=== PATIENT | female | born 1990 | race Caucasian/White ===

== ENCOUNTER → 2016-09-24 | Outpatient (CLI) | payer OTHER, BC ==
[~2016-09-24] MED LIST: BCPILLS PO; LEVO75TA5 PO; VNTHFA/IN INH
== END | disposition home or self-care (01) ==
LOC: C.RDSM 09:53
PROVIDERS: ATTEND Family Medicine Sports Medicine
DX: M25.561 Pain in right knee (principal)

== ENCOUNTER → 2016-10-07 | Outpatient (CLI) | payer OTHER, BC ==
--- NOTE | 2016-10-07 11:01 | DIAGNOSTIC IMAGING REPORT ---
LOWER EXT JOINT WITHOUT CLINICAL HISTORY: 25 years-old Female presenting with KNEE MCL Sprain, effusion OF RIGHT KNEE. TECHNIQUE: Multisequence, multiplanar MR imaging of the right knee was performed without the use of intravenous contrast. IV contrast: None. COMPARISON: Plain radiographs of the right knee from 09/24/2016. FINDINGS: Bony edema noted along the posterior aspect of the tibial plateau, greater along the lateral aspect, and the lateral aspect of the lateral femoral condyle. Cartilage remains intact in all 3 compartments. Horizontally oriented intrasubstance high signal within the junction of the posterior horn and body of the medial meniscus, which does not convincingly approach an articular surface. Lateral meniscus intact. At least partial tear of the anterior cruciate ligament with disruption of fibers at the femoral origin and redundancy of distal fibers at the tibial insertion. Few fibers may be intact. Posterior cruciate ligament intact. High signal intensity noted both deep and superficial to the medial collateral ligament, which is not thickened or disrupted, consistent with grade 1 sprain. Lateral collateral ligament complex including the biceps femoris tendon, fibular collateral ligament, popliteal tendon, and iliotibial band are intact. Quadriceps and patellar tendons intact. Prepatellar edema noted. Small joint effusion. No popliteal cyst. Normal muscle bulk. No muscular edema. IMPRESSION: 1. Posterior tibial plateau and lateral femoral condyle bony contusion associated with at least partial anterior cruciate ligament tear. 2. Abnormal intrasubstance signal within the posterior horn body junction of the medial meniscus may represent degenerative change versus small meniscal tear. 3. Grade 1 sprain of the medial collateral ligament. 4. Small joint effusion. Electronically signed by: Tim Duarte M.D. 10/07/2016 10:59 AM Dictated Date/Time: 10/07/2016 10:43 AM
== END | disposition home or self-care (01) ==
LOC: C.MRIBC 08:51
PROVIDERS: ATTEND Family Medicine Sports Medicine
DX: M25.561 Pain in right knee (principal); S83.411A Sprain of medial collateral ligament of right knee, initial encounter; X58.XXXA Exposure to other specified factors, initial encounter

== ENCOUNTER → 2016-10-22 | Outpatient (CLI) | payer OTHER, BC ==
[2016-10-22 12:35] LABS: HEMATOCRIT 43.5 % (37-47); MEAN CELL VOLUME 87.2 fL (80-100); MEAN CORPUSCULAR HEMOGLOBIN 29.1 pg (25-34); MEAN CORPUSCULAR HGB CONC 33.3 g/dl (32-36); MEAN PLATELET VOLUME 10.2 fL (7.4-10.4); PLATELET COUNT 360 K/uL (130-400); RED BLOOD COUNT 4.99 M/uL (4.2-5.4); WHITE BLOOD COUNT 8.52 K/uL (4.8-10.8)
[2016-10-22 12:41] LABS: PARTIAL THROMBOPLASTIN RATIO 1.2; PROTHROMBIN TIME (PATIENT) 10.3 SECONDS (9.0-12.0)
== END | disposition home or self-care (01) ==
LOC: C.LAB1850 11:25
PROVIDERS: ATTEND Physician Assistant
DX: S83.511A Sprain of anterior cruciate ligament of right knee, initial encounter (principal); Z01.818 Encounter for other preprocedural examination; X58.XXXA Exposure to other specified factors, initial encounter

== ENCOUNTER → 2016-10-30 | Day surgery (SDC) | payer OTHER, BC ==
[2016-10-22 12:52] VITALS: BMI 44.0
[2016-10-24 11:53] VITALS: BMI 45.0
--- NOTE | 2016-10-24 12:03 | PAT Medication Instructions ---
Service Date Oct 24, 2016. Current Home Medication List Albuterol Hfa (Ventolin Hfa), 2-4 PUFFS INH Q6H PRN for Shortness of Breath Control Pills ( Control Pills), 1 TAB PO DAILY Levothyroxine Sodium (Levothyroxine Sodium), 1 TAB PO QAM Medication Instructions For Your Scheduled Surgery - Check with surgeon for instructions: Control Pills ( Control Pills), 1 TAB PO DAILY - Take the following medications the morning of surgery with a sip of water: Levothyroxine Sodium (Levothyroxine Sodium), 1 TAB PO QAM Albuterol Hfa (Ventolin Hfa), 2-4 PUFFS INH Q6H PRN for Shortness of Breath (if needed) - Take the following medications as scheduled the night before surgery: Albuterol Hfa (Ventolin Hfa), 2-4 PUFFS INH Q6H PRN for Shortness of Breath ( if needed) If you have any questions please call us at [phone] or [phone] or [phone]
[2016-10-24 13:23] LABS: BUN/CREATININE RATIO 10.8 (10-20); CALCIUM 9.6 mg/dl (8.5-10.1); CREATININE 0.79 mg/dl (0.60-1.20); POTASSIUM 4.1 mmol/L (3.5-5.1)
[2016-10-28 10:28] VITALS: BMI 45.0
[~2016-10-30] VITALS: Ht 165.1 cm; Wt 123.6 kg
[~2016-10-30] MED LIST changes: +ATROPINE SULFATE 0.1 MG/ML 5ML SYR IV PRN; +BUPIVACAINE 0.25% 30 ML VIAL ONE; +BUPIVACAINE 0.5 % 5 MG/1 ML MPF 30ML VIAL ONE; +BUPIVACAINE/EPINEPHRINE 0.5% MPF 1:200,000 10 ML VIAL ONE; +CLINDAMYCIN 600 MG/54 ML D5W IV ONE; +CLINDAMYCIN PHOS 150 MG/ML 2 ML VIAL IV SCH; +DEXAMETHASONE SOD INJ 4 MG/ML VIAL ONE; +EpHEDrine SULFATE INJ 50 MG/ML AMP IV PRN; +EpINEphrine HCL INJ 1 MG/ML 5ML SYRINGE ONE; +FENTANYL CITRATE INJ 50 MCG/1 ML 2 ML VIAL ONE; +FLUMAZENIL 0.1 MG/1 ML 10 ML VIAL IV PRN; +GLYCOPYRROLATE INJ 0.2 MG/ML VIAL ONE; +HYDROmorphone INJ 1 MG/ML SYR IV PRN; +HYDROmorphone INJ 1 MG/ML SYR ONE; +KETOROLAC TROMETHAMINE 30 MG/ML VIAL IV. PRN; +KETOROLAC TROMETHAMINE 30 MG/ML VIAL ONE; +LABETALOL HCL IV 5 MG/ML 20ML IV PRN; +LACTATED RINGER'S 1000ML 1,000 ML IV SCH; +LIDOCAINE HCL 2% 2 ML VIAL (20MG/ML) ONE; +LIDOCAINE/EPINEPHRINE 1% 20 ML VIAL ONE; +MIDAZOLAM HCL 1 MG/ML 2ML VIAL ONE; +MoRPHine SULFATE 2 MG/ML CARP IV PRN; +MoRPHine SULFATE 4 MG/ML 1 ML CARP\\VIAL IV PRN; +NALOXONE HCL 0.4 MG/1 ML VIAL/CARP IV PRN; +NEOSTIGMINE METHYLSULFATE 5 MG/5 ML SYR ONE; +ONDANSETRON INJ 2 MG/ML 2 ML VIAL IV PRN; +ONDANSETRON INJ 2 MG/ML 2 ML VIAL ONE; +OXYCODONE/ACETAMINOPHEN 5-325 TAB PO PRN; +PROMETHAZINE HCL INJ 12.5 MG in SODIUM CHLORIDE 0.9% 50ML 50 ML IV PRN; +PROPOFOL IV EMULSION 10 MG/ML 20 ML VIAL IV ONE; +ROCURONIUM BROMIDE 10 MG/ML 5 ML VIAL ONE; +SUCCINYLCHOLINE CHLORIDE 20 MG/ML 10 ML VIAL IV ONE
[2016-10-30 11:18] VITALS: BP 114/83; PULSE 100; TEMP 36.7; O2SAT 95; Ht 165.1 cm; Wt 123.6 kg
--- NOTE | 2016-10-30 12:25 | History & Physical Bridge Note ---
H&P Re-Evaluation Bridge Note: I have examined the patient, reviewed the History & Physical and in the interval since the performance of the History & Physical I have noted the following changes of clinical significance: No changes noted
--- NOTE | 2016-10-30 17:07 | Discharge Instructions ---
Discharge Instructions Date of Service Oct 30, 2016. Admission Reason for Admission: Right Knee Acl And Lateral Meniscus Tears Discharge Discharge Diagnosis / Problem: Status post Right ACL reconstruction, partial medial & lateral menscectomy Discharge Goals Goal(s): Decrease discomfort, Improve function, Increase independence Activity Recommendations Activity Limitations: per Instructions/Follow-up section Shower/Bathe: may shower/bathe in 3 days Driving or Machine Use: Not while on Narcotics and at least until after no longer wearing brace. Recommend waiting until gait returns to normal in 4-6 weeks. . Current Hospital Diet Patient's current hospital diet: Regular Diet Discharge Diet Recommended Diet: Regular Diet Procedures Procedures Performed: Partial Lateral Meniscectomy, Anterior Cruciate Ligament Reconstruction, Medial Meniscectomy Pending Studies Studies pending at discharge: no School Instructions Return To School: time frame (1-2 weeks) Medical Emergencies . Who to Call and When: Medical Emergencies: If at any time you feel your situation is an emergency, please call 911 immediately. . Non-Emergent Contact Non-Emergency issues call your: Surgeon Call Non-Emergent contact if: temperature is above 101.5, your pain is not controlled, wound has increased drainage, wound has increased redness . "Provider Documentation" section prepared by Farzad De La Torre. . VTE Core Measure Inpt VTE Proph given/why not?: Other Anticoagulation (Asprin 325 mg twice a day x 3 weeks), T.E.D. Stockings
--- NOTE | 2016-10-30 17:10 | [facility] Operative Report ---
Operative Report Operative Date Oct 30, 2016. Pre-Operative Diagnosis Anterior Cruciate Ligament Tear of Right Knee Post-Operative Diagnosis Anterior Cruciate Ligament Tear of Right Knee,Lateral Meniscus Tear and Medial Meniscus Tear Procedure(s) Performed 1) Right knee arthrscopy with Anterior Cruciate Ligament Reconstruction with Hamstring autograft augmented with allograft. 2) Partial Medial and Lateral Meniscectomies. 3) Exam under anesthesia. Surgeon Dr. Cara De La Torre Cuffing Machine Operator Surgeon(s) Dr. Rolando Vega, Vel Gary PA-C & Manny Calderon PA-C Estimated Blood Loss 20ml Findings Examination Under Anesthesia: Range of motion was 5 of hyperextension-125 of flexion. Ligamentous examination exhibited: Dinora testing with 5 mm of anterior translation and soft endpoint, and a + glide. Stable: posterior drawer , varus and valgus stress testing at zero and 30. ARTHROSCOPIC FINDINGS: There was significant synovitis of the fat pad. 1) PATELLOFEMORAL JOINT: To articular surface of the patella and trochlea were intact. 2) GUTTERS: No loose bodies. 3) MEDIAL COMPARTMENT: The articular surface of the femur and tibia were normal. There was a small less than 10 mm undersurface partial tear in the posterior aspect of the medial meniscus, less than 25% of the depth. 4) ACL/PCL: There was an empty lateral wall sign, with obvious tear of the ACL from its femoral attachment. The PCL was intact 5) LATERAL COMPARTMENT: The lateral compartment was then entered in a figure-of- four position. The femoral/tibial cartilage was normal. The lateral meniscus had a radial tear at the apex resulting in a parent beak tear anteriorly. Fluids 1800 Specimens none per surgeon Dr. Cara De La Torre Drains n/a Anesthesia GET + Adductor canal Block. Complication(s) None Disposition Recovery Room / PACU (Stable ) Indications This is a 25-year-old female who tore their right ACL during a hiking accident. I recommended that their right knee anterior cruciate ligament reconstruction be performed to allow the patient to return to cutting/pivoting activities. The patient understands the rehabilitation process as well as the risks of surgery, which include bleeding, infection, re-operation, damage to nerves and arteries, continued knee pain, or regression of arthritis, arthrofibrosis (knee stiffness) , failure of the graft, failure of the hardware, and the potential that the patient may not return to their previous level of activity, and deep vein thrombosis. The patient understands all of these instructions and explanations , all of their questions have been satisfactorily addressed and the patient has elected to proceed. Informed consent was signed. Description of Procedure IMPLANTS: 1. Femoral Fixation with ACL Tightrope RT (Arthrex). 2. Tibial Fixation with ABS Tightrope with ABS button (Arthrex). PROCEDURE: The patient was taken to the Operating Room and placed in the supine position after Adductor nerve block and general anesthetic was administered. The surgeon initials and a multidisciplinary time-out were used to identify the right leg as the correct operative limb. Prior to the incision, 600 milligrams of intravenous clindamycin was given. The right leg was then prepped and draped in a standard sterile fashion. The anterolateral, anteromedial, and superolateral portals were injected with the 50:50 mixture of 1% Lidocaine plain and 0.5% Bupivacaine with epinephrine, for a total of 10cc, in the standard fashion. An anterolateral arthroscopic portal was established with 11-blade. Next, the arthroscope was introduced into the knee. The anteromedial portal was established under direct visualization using a spinal needle followed by an 11 blade in the standard fashion. The above findings were observed during the diagnostic arthroscopy. Graft [place]/Preparation: The oblique planed incision was injected with 6 cc of the above noted 50:50 mixture. With the knee bent 40-50 degrees a #10- blade was used to make sharp dissection approximately 5 cm. Blunt dissection was used to identify the Sartorious fascia. This was incised along its superior border and T distally. The Gracilis and Semitendinosus were identified and tagged. The tendons appeared very small with the gracilis appearing larger then the semitendinosus. All adhesions were bluntly and sharply dissected off the gracilis tendon. The gracilis was sharply dissected off the bone distally and a Krackow stitch was placed with a #2 FiberWire. The tendon was delivered into the wound and the remaining adhesions were removed. A closed end graft harvester was used to then harvest the gracilis tendon in the standard fashion. The graft was placed on the back table for preparation. All excess muscle was removed. It easily fit through a 6 mm sizer. At that point it was felt that the additional tendon would not provide enough collagen to make an adequate sized graft and allograft was called for and we left the semitendinosus tendon alone. The allograft was thawed. It was trimmed and incorporated with the above autograft. The ends of the tendons were whipped stitched with 3-0 Vicryl and passed through the ABS and RT Tightropes, where the ends were then secured with a FiberLoop. 0 Vicryl was used to carolina the 20mm from either end of the tight ropes and the knot docked in the standard fashion. It was quadrupled over and found to fit an 8.5 mm sizer, for the femoral side and tibial side. The graft length was 67 mm. The graft was tensioned on the back table and 15 PSI and covered with a moist sponge until later use. After completing the diagnostic arthroscopy, the fat pad was removed to enable better visualization of all the compartments and 4 tunnel preparation and passage of the graft. The meniscal tears were debrided with accommodation of hand punches and mechanical shaver back to stable margins. The right knee was then flexed to 90 degrees and a bump was placed underneath the posterior thigh. With the knee flexed in a 90-degree position, my attention was then focused on excising the remnants of the anterior cruciate ligament with a 5.0 mm shaver and Coolcut. A small notchplasty was performed to visualize the back wall. The arthroscope was switch to the anteromedial portal and the Flipcutter aiming guide was placed at the 10 Oclock position with 7 mm from the over the top position, with 105 degrees. The lateral aspect of the femur was marked and a small 2 cm incision was made to place the aiming guide down to bone. Then the 8.5 mm Flipcutter was introduced into the knee through the lateral femoral condyle for proper femoral tunnel placement. The Flipcutter was flipped and the tunnel was reamed for a total tunnel length of 30 mm. There was 1 mm thick back wall. A Fiberstick suture was then used and shuttled in through the femoral tunnel and then out the anterolateral portal. The Tibial drill guide was then brought into the knee and set on 60 degrees. A 8.5 mm Flipcutter was then introduced from the anteromedial tibia into the intra -articular position in the center of the ACL footprint even with the anterior horn of lateral meniscus and 8 mm anterior to the PCL. The tunnel was created to a depth of 32 mm. A Tigerstick was introduced through the tibial tunnel and retrieved with the Fiberstick through the anteromedial portal. The graft was then introduced intra-articularly through the anteromedial portal. The graft was then seated in an anatomic position along the femur. Fixation was accomplished on the femoral side with an ACL Tightrope RT. The graft was then introduced into the tibial tunnel and an ABS button was placed. Next, the graft was taken into full extension. There was no impingement. The graft entered the knee approximately 1 mm at 10 degrees of flexion. The arthroscopic instruments were then removed. The graft was then cycled and fixed to the knee in 0 degrees flexion with ABS Tightrope and button on the tibial side in the standard fashion. Idnora and pivot shift were then tested and were negative. The knee had full range of motion. The wounds were then copiously irrigated. The portal sites were closed with 3- 0 Prolene. The Sartorius fascia was closed with 0 Vicryl in a running fashion. The deep adipose tissue had a single 2-0 Vicryl suture placed after copious irrigation. The subcutaneous tissue was closed with 3-0 Vicryl. The skin was closed with a running subcuticular using a 3-0 Prolene in a standard running fashion. The wound was dressed with Steri-Strips, Xeroform gauze, sterile gauze , ABDs, sterile Webril, and a foot to thigh Ward bandage. An Iceman device and T-ROM hinged knee brace were applied. The patient was then transferred to the Recovery Room in stable condition. Post-op Instructions: The patient will be weight bearing as tolerated with his brace locked in extension for the next 2 weeks. The patient may remove the operative dressing on Post-Op Day #2 and apply Band-Aids to the portal wounds and cover their anterior incision with gauze as needed. The patient may shower in 72 hours and is to wear the ED for 2 weeks on their operative limb. The patient is to use the pain medicine as needed and take the ASA for 3 weeks. The patient is to start PT post-operative day 2. The patient was also given a handout for home quad strengthening and seated self-assisted ROM exercises, which they may begin tomorrow. The patient is to follow up with me in 10-15 days. I attest to the content of the Intraoperative Record and any orders documented therein. Any exceptions are noted below.
--- NOTE | 2016-10-30 17:16 | [facility] Post Operative Brief Note ---
Immediate Operative Summary Operative Date Oct 30, 2016. Pre-Operative Diagnosis Anterior Cruciate Ligament Tear of Right Knee Post-Operative Diagnosis Anterior Cruciate Ligament Tear of Right Knee,Lateral Meniscus Tear and Medial Meniscus Tear Procedure(s) Performed 1) Right knee arthrscopy with Anterior Cruciate Ligament Reconstruction with Hamstring autograft augmented with allograft. 2) Partial Medial and Lateral Meniscectomies. 3) Exam under anesthesia. Surgeon Dr. Cara De La Torre Patient Ambassador Surgeon(s) Dr. Rolando Vega, Vel Gary PA-C & Manny Calderon PA-C Estimated Blood Loss 20ml Findings ACL tear, partial medial meniscus tear Fluids (cc crystalloids) 1800 Specimens none per surgeon Dr. Cara De La Torre Drains none Anesthesia general Complication(s) None Disposition Recovery Room / PACU
--- NOTE | 2016-10-30 18:12 | Anesthesiology Progress Note ---
Anesthesia Post Op Note Date & Time Oct 30, 2016 at 18:12 Vital Signs Pain Intensity: 5 Vital Signs Past 12 Hours Date Time Temp Pulse Resp B/P (MAP) Pulse Ox O2 Delivery O2 Flow Rate FiO2 10/30/16 18:05 100 16 141/81 94 Room Air 10/30/16 17:55 110 16 151/85 95 Room Air 10/30/16 17:45 36.2 111 16 148/87 94 Oxymask 10 10/30/16 17:35 111 16 155/87 94 Oxymask 10 10/30/16 17:27 36.0 117 16 155/83 96 Oxymask 10 10/30/16 11:18 36.7 100 18 114/83 (93) 95 Room Air Notes Mental Status: alert / awake / arousable, participated in evaluation Pt Amnestic to Procedure: Yes Nausea / Vomiting: adequately controlled Pain: adequately controlled Airway Patency, RR, SpO2: stable & adequate BP & HR: stable & adequate Hydration State: stable & adequate Anesthetic Complications: no major complications apparent
[2016-10-30 18:27] VITALS: BP 140/78; PULSE 105; TEMP 36.5; O2SAT 95
[2016-10-30 19:20] VITALS: BP 137/72; PULSE 105; TEMP 36.3; O2SAT 94
== END | disposition home or self-care (01) ==
LOC: C.ACU 10:56
PROVIDERS: ATTEND Orthopaedic Surgery Sports Medicine
DX: S83.511A Sprain of anterior cruciate ligament of right knee, initial encounter (principal); S83.241A Other tear of medial meniscus, current injury, right knee, initial encounter; S83.281A Other tear of lateral meniscus, current injury, right knee, initial encounter; W01.0XXA Fall on same level from slipping, tripping and stumbling without subsequent striking against object, initial encounter; J45.909 Unspecified asthma, uncomplicated; E03.9 Hypothyroidism, unspecified; E66.9 Obesity, unspecified; Z79.3 Long term (current) use of hormonal contraceptives

== ENCOUNTER → 2016-11-12 | Outpatient (CLI) | payer OTHER, BC ==
[~2016-11-12] MED LIST changes: -ATROPINE SULFATE 0.1 MG/ML 5ML SYR IV PRN; -BCPILLS PO; -BUPIVACAINE 0.25% 30 ML VIAL ONE; -BUPIVACAINE 0.5 % 5 MG/1 ML MPF 30ML VIAL ONE; -BUPIVACAINE/EPINEPHRINE 0.5% MPF 1:200,000 10 ML VIAL ONE; -CLINDAMYCIN 600 MG/54 ML D5W IV ONE; -CLINDAMYCIN PHOS 150 MG/ML 2 ML VIAL IV SCH; -DEXAMETHASONE SOD INJ 4 MG/ML VIAL ONE; -EpHEDrine SULFATE INJ 50 MG/ML AMP IV PRN; -EpINEphrine HCL INJ 1 MG/ML 5ML SYRINGE ONE; -FENTANYL CITRATE INJ 50 MCG/1 ML 2 ML VIAL ONE; -FLUMAZENIL 0.1 MG/1 ML 10 ML VIAL IV PRN; -GLYCOPYRROLATE INJ 0.2 MG/ML VIAL ONE; -HYDROmorphone INJ 1 MG/ML SYR IV PRN; -HYDROmorphone INJ 1 MG/ML SYR ONE; -KETOROLAC TROMETHAMINE 30 MG/ML VIAL IV. PRN; -KETOROLAC TROMETHAMINE 30 MG/ML VIAL ONE; -LABETALOL HCL IV 5 MG/ML 20ML IV PRN; -LACTATED RINGER'S 1000ML 1,000 ML IV SCH; -LIDOCAINE HCL 2% 2 ML VIAL (20MG/ML) ONE; -LIDOCAINE/EPINEPHRINE 1% 20 ML VIAL ONE; -MIDAZOLAM HCL 1 MG/ML 2ML VIAL ONE; -MoRPHine SULFATE 2 MG/ML CARP IV PRN; -MoRPHine SULFATE 4 MG/ML 1 ML CARP\\VIAL IV PRN; -NALOXONE HCL 0.4 MG/1 ML VIAL/CARP IV PRN; -NEOSTIGMINE METHYLSULFATE 5 MG/5 ML SYR ONE; -ONDANSETRON INJ 2 MG/ML 2 ML VIAL IV PRN; -ONDANSETRON INJ 2 MG/ML 2 ML VIAL ONE; -OXYCODONE/ACETAMINOPHEN 5-325 TAB PO PRN; -PROMETHAZINE HCL INJ 12.5 MG in SODIUM CHLORIDE 0.9% 50ML 50 ML IV PRN; -PROPOFOL IV EMULSION 10 MG/ML 20 ML VIAL IV ONE; -ROCURONIUM BROMIDE 10 MG/ML 5 ML VIAL ONE; -SUCCINYLCHOLINE CHLORIDE 20 MG/ML 10 ML VIAL IV ONE
== END | disposition home or self-care (01) ==
LOC: C.RDSM 13:00
PROVIDERS: ATTEND Orthopaedic Surgery Sports Medicine
DX: Z09 Encounter for follow-up examination after completed treatment for conditions other than malignant neoplasm (principal); M25.561 Pain in right knee